=== PATIENT | male | born 1990 | race Caucasian/White ===

== ENCOUNTER → 2018-12-30 | Outpatient (CLI) | payer OTHER ==
[~2018-12-30] MED LIST: AMOX500T PO
[2018-12-30 10:16] LABS: MICROSCOPIC NOT IND
[2018-12-30 10:21] LABS: BASOPHILS # (AUTO) 0.05 x10^3/uL (0-0.1); BASOPHILS % (AUTO) 1 % (0-1); EOSINOPHILS # (AUTO) 0.18 x10^3/uL (0-0.4); EOSINOPHILS % (AUTO) 4 % (1-7); LYMPHOCYTES # (AUTO) 1.42 x10^3/uL (1-3.4); LYMPHOCYTES % (AUTO) 32 % (22-44); MD NO; MEAN CORPUSCULAR HGB CONC 34.4 g/dL (33.2-36.2); MEAN CORPUSCULAR VOLUME 87.3 fL (81-97); MEAN PLATELET VOLUME 9.5 fL (7.4-10.4); MONOCYTES # (AUTO) 0.31 x10^3/uL (0.2-0.8); MONOCYTES % (AUTO) 7 % (2-9); NEUTROPHILS # (AUTO) 2.45 x10^3/uL (1.8-6.8); NEUTROPHILS % (AUTO) 56 % (42-75); PLATELET COUNT 187 x10^3/uL (130-400); RED BLOOD COUNT 5.35 x10^6/uL (4.38-5.82); RED CELL DISTRIBUTION WIDTH 13.3 % (9.4-14.8)
[2018-12-30 10:27] LABS: INTERNATIONAL NORMALIZED RATIO 1.07 (0.93-1.1); PROTHROMBIN TIME 11.2 Seconds (9.6-11.5)
[2018-12-30 10:28] LABS: ANION GAP 4 mmol/L (5-15); CALCIUM 9.3 mg/dL (8.5-10.1); CHLORIDE 106 mmol/L (98-107)
[2018-12-30 10:28] LABS: CULTURE INDICATED? NO
[2018-12-30 10:29] LABS: ALANINE AMINOTRANSFERASE 24 U/L (12-78); ALBUMIN 4.5 g/dL (3.4-5.0); CREATININE 1.18 mg/dL (0.7-1.3)
[2018-12-30 10:31] LABS: ALKALINE PHOSPHATASE 75 U/L (45-117); BILIRUBIN,TOTAL 0.5 mg/dL (0.2-1.0); TOTAL PROTEIN 7.3 g/dL (6.4-8.2)
== END | disposition home or self-care (01) ==
LOC: STAR 09:09
PROVIDERS: ATTEND Orthopaedic Surgery Orthopaedic Surgery of the Spine
DX: Z01.818 Encounter for other preprocedural examination (principal); R00.1 Bradycardia, unspecified
CPT/HCPCS: 36415; 71046; 80053; 81003; 85025; 85610; 85730; 93005

== ENCOUNTER 2019-01-06 05:13 | Inpatient (IN) | payer OTHER ==
[~2019-01-06] VITALS: Ht 170.2 cm; Wt 61.1 kg
[2019-01-06] MEDS ORDERED: LACTATED RINGERS 1,000 ML IV SCH (06:06)
[2019-01-06 06:09] VITALS: BP 113/75
[2019-01-06] MEDS ORDERED: PROPOFOL 10 MG/ML, 20ML ONE ×2 (07:03→07:06)
[2019-01-06] MEDS ORDERED: ROCURONIUM 10MG/ML,5ML ONE (07:03)
[2019-01-06] MEDS ORDERED: DEXAMETHASONE 4 MG/ML, 1ML ONE (07:03)
[2019-01-06] MEDS ORDERED: LIDOCAINE 2%, 10ML ONE (07:03)
[2019-01-06] MEDS ORDERED: CEFAZOLIN 1,000 MG ONE (07:03)
[2019-01-06] MEDS ORDERED: GLYCOPYRROLATE 0.2MG/1ML, 5ML ONE (07:03)
[2019-01-06] MEDS ORDERED: FENTANYL PF 250 MCG/5ML ONE (07:04)
[2019-01-06] MEDS ORDERED: MIDAZOLAM 1 MG/ML, 5ML ONE (07:04)
[2019-01-06] MEDS ORDERED: LIDOCAINE 1%, 20ML ONE (07:18)
[2019-01-06] MEDS ORDERED: KETAMINE 10 MG/ML, 20ML ONE (07:18)
[2019-01-06] MEDS ORDERED: THROMBIN 5,000 UNIT VIAL TP ONE ×3 (07:20→10:45)
[2019-01-06] MEDS ORDERED: VANCOMYCIN 1,000 MG ONE (07:20)
[2019-01-06] MEDS ORDERED: TOBRAMYCIN SULFATE 1.2 GM IMP ONE (07:20)
[2019-01-06] MEDS ORDERED: TRIAMCINOLONE ACETONIDE 40 MG/ML, 1ML ONE (07:20)
[2019-01-06] MEDS ORDERED: LIDOCAINE 1%-EPI 1:100K, 20ML ONE (07:21)
[2019-01-06] MEDS ORDERED: ALBUTEROL/IPRATROPIUM 2.5MG/0.5MG, 3 ML NPPB PRN (07:30)
[2019-01-06] MEDS ORDERED: ONDANSETRON ODT 8 MG PO PRN (07:30)
[2019-01-06] MEDS ORDERED: FENTANYL PF 100 MCG/2ML IV PRN (07:30)
[2019-01-06] MEDS ORDERED: MORPHINE SULFATE 4 MG/ML, 1ML IVPush PRN (07:30)
[2019-01-06] MEDS ORDERED: LABETALOL 5MG/ML, 20ML IV PRN (07:30)
[2019-01-06] MEDS ORDERED: OXYcodone 5 MG/5 ML ORAL.SOL UDC PO PRN (07:30)
[2019-01-06] MEDS ORDERED: hydrALAzine 20 MG/ML, 1ML IV PRN (07:30)
[2019-01-06] MEDS ORDERED: METOCLOPRAMIDE 5 MG/ML, 2ML IV PRN (07:30)
[2019-01-06] MEDS ORDERED: FAMOTIDINE 20 MG TABLET PO ONE (07:30)
[2019-01-06] MEDS ORDERED: EPHEDRINE 50 MG/ML, 1ML IM PRN (07:30)
[2019-01-06] MEDS ORDERED: SCOPOLAMINE PATCH, 1.5MG PATCH.TD72 TD ONE ×2 (07:30→07:33)
[2019-01-06] MEDS ORDERED: OxyconTIN ER 20 MG TAB.ER PO ONE (07:30)
[2019-01-06] MEDS ORDERED: EPHEDRINE 50 MG/ML, 1ML IVPush PRN (07:30)
[2019-01-06] MEDS ORDERED: MEPERIDINE/PF 25MG/0.5ML IVPush PRN (07:30)
[2019-01-06] MEDS ORDERED: KETOROLAC 30 MG/1 ML IV PRN (07:30)
[2019-01-06] MEDS ORDERED: GABAPENTIN 300 MG CAPSULE PO ONE (07:30)
[2019-01-06] MEDS ORDERED: DEXAMETHASONE 4 MG/ML, 1ML IV PRN (07:30)
[2019-01-06] MEDS ORDERED: METOPROLOL 1 MG/ML, 5ML ONE (07:39)
[2019-01-06] MEDS ORDERED: FENTANYL PF 100 MCG/2ML ONE (10:49)
[2019-01-06] MEDS ORDERED: OXYcodone 5 MG/5 ML ORAL.SOL UDC ONE (10:50)
[2019-01-06] MEDS ORDERED: HYDROmorphone 2 MG/ML, 1ML ONE (10:50)
[2019-01-06] MEDS: HYDROmorphone 2 MG/ML, 1ML IVPush PRN ×3 (10:55→11:24)
[2019-01-06] MEDS ORDERED: KETOROLAC 30 MG/1 ML ONE (11:02)
[2019-01-06] MEDS ORDERED: MIDAZOLAM 1 MG/ML, 2ML ONE (11:03)
[2019-01-06] MEDS: MIDAZOLAM 1 MG/ML, 2ML IV PRN ×2 (11:07→11:24)
[2019-01-06 12:26] VITALS: BP 111/67
[2019-01-06] MEDS ORDERED: PHARMACY MAY ADJ FOR RENAL FX MC PRN (12:30)
[2019-01-06] MEDS ORDERED: HYDROcodone/APAP 10/325 MG TABLET PO PRN (13:30)
[2019-01-06] MEDS ORDERED: BISACODYL 10 MG SUPP PR PRN (13:30)
[2019-01-06] MEDS ORDERED: METHOCARBAMOL 750 MG TABLET PO PRN (13:30)
[2019-01-06] MEDS ORDERED: PROMETHAZINE 25 MG/ML, 1ML IM PRN (13:30)
[2019-01-06] MEDS ORDERED: MAGNESIUM HYDROXIDE 8%, 30ML UDC PO PRN (13:30)
[2019-01-06] MEDS: ONDANSETRON 2MG/ML, 2ML IV PRN ×2 (13:47→23:57)
[2019-01-06] MEDS: morphine SULFATE 10 MG/ML, 1ML IV PRN ×3 (13:49→19:39)
[2019-01-06] MEDS: D5%-0.9% NACL+KCL 20MEQ 1,000 ML IV SCH ×2 (13:49→23:50)
[2019-01-06] MEDS: CEFAZOLIN PMX 1GM/50ML 50 ML IVPB SCH ×2 (16:56→23:54)
[2019-01-06] MEDS ORDERED: LORazepam 2 MG/ML, 1ML IVPush PRN (17:00)
[2019-01-06] MEDS ORDERED: PROMETHAZINE 25 MG SUPP PR PRN (18:30)
[2019-01-06 19:34] VITALS: BP 132/72
[2019-01-06] MEDS: SENNA/DOCUSATE TABLET PO SCH (19:38)
[2019-01-06] MEDS: HYDROcodone/APAP 5/325 TABLET PO PRN ×2 (19:49→23:54)
[2019-01-07 00:06] VITALS: BP 124/73
[2019-01-07] MEDS: HYDROcodone/APAP 5/325 TABLET PO PRN ×5 (04:04→20:02)
[2019-01-07 04:06] VITALS: BP 110/62
[2019-01-07] MEDS: D5%-0.9% NACL+KCL 20MEQ 1,000 ML IV SCH ×2 (07:25→19:50)
[2019-01-07] MEDS: ONDANSETRON 2MG/ML, 2ML IV PRN ×2 (08:13→17:41)
[2019-01-07] MEDS: SENNA/DOCUSATE TABLET PO SCH ×2 (08:14→19:36)
[2019-01-07 09:39] VITALS: BP 115/73
[2019-01-07] MEDS: morphine SULFATE 10 MG/ML, 1ML IV PRN ×3 (09:42→21:56)
[2019-01-07 13:17] VITALS: BP 118/68
[2019-01-07 19:42] VITALS: BP 111/73
[2019-01-08] MEDS: HYDROcodone/APAP 5/325 TABLET PO PRN ×3 (01:04→09:32)
[2019-01-08 01:11] VITALS: BP 115/72
[2019-01-08] MEDS: D5%-0.9% NACL+KCL 20MEQ 1,000 ML IV SCH (05:32)
[2019-01-08] MEDS: ONDANSETRON 2MG/ML, 2ML IV PRN (05:45)
[2019-01-08] MEDS: morphine SULFATE 10 MG/ML, 1ML IV PRN (08:50)
[2019-01-08 08:52] VITALS: BP 120/62
[2019-01-08] MEDS: SENNA/DOCUSATE TABLET PO SCH (09:32)
[2019-01-08] MEDS ORDERED: ALPR0.25 PO (10:34)
[2019-01-08] MEDS ORDERED: HYDR-3240 PO (10:34)
== END 2019-01-08 10:50 | disposition home or self-care (01) | DRG 472 ==
LOC: ORIP 05:13 → 4NOR 12:13 → DCLOUNGE 01-08 10:30
PROVIDERS: ADMIT Orthopaedic Surgery Orthopaedic Surgery of the Spine; ATTEND Orthopaedic Surgery Orthopaedic Surgery of the Spine
PROC: 0RB30ZZ Excision of Cervical Vertebral Disc, Open Approach (ICD-10-PCS; 2019-01-06)
PROC: 4A11X4G Monitoring of Peripheral Nervous Electrical Activity, Intraoperative, External Approach (ICD-10-PCS; 2019-01-06)
PROC: 0RG20K0 Fusion of 2 or more Cervical Vertebral Joints with Nonautologous Tissue Substitute, Anterior Approach, Anterior Column, Open Approach (ICD-10-PCS; principal; 2019-01-06 07:30)
DX: M48.02 Spinal stenosis, cervical region (principal); M50.022 Cervical disc disorder at C5-C6 level with myelopathy; M54.12 Radiculopathy, cervical region; F06.4 Anxiety disorder due to known physiological condition
CPT/HCPCS: 72040; J3260; J3490; 95938; 95941; C1713; G0378; J0690; J1100; J1170; J1885; J2001; J2250; J2405; J2704; J3010; J3301; J3370; C1762; J2060; J2270; J3480; J7120